=== PATIENT | male | born 1930 | race Caucasian/White ===

== ENCOUNTER 2016-04-26 13:43 | Outpatient (CLI) | payer OTHER ==
[~2016-04-26] VITALS: Ht 170.2 cm; Wt 57.7 kg
[2016-04-26 13:50] VITALS: BP 131/69; PULSE 109; RESP 18; Ht 170.2 cm; Wt 57.7 kg
[2016-04-26] MEDS ORDERED: MONT5TAB12 PO (13:59)
[2016-04-26] MEDS ORDERED: TAMS-14 PO (13:59)
[2016-04-26] MEDS ORDERED: DET1 PO (13:59)
[2016-04-26] MEDS ORDERED: ADV10050 INHALATION (13:59)
[2016-04-26] MEDS ORDERED: PRAV10TA43 PO (13:59)
--- NOTE | 2016-04-26 14:09 | PN ---
Date/Time of Note Date/Time of Note DATE: 04/26/16 TIME: 14:02 Assessment/Plan Assessment/Plan Assessment/Plan [facility] Progress Note Date of Service: 04/26/16 Today's Impression & Plan: Stable and doing well post lap appendectomy with partial cecectomy for acute appendicitis. No indication of major post operative complication. 1. F/u with PCP 2. F/u with urology 3. F/u with us prn Thank you very much for allowing us to participate in the care of this very nice patient and wonderful family. If there are any questions, please feel free to contact me at . Total visit time: 20 minutes, of which more than half was spent in [id number] discussion with the patient, possibly including time to discuss issues with family, as well as coordination of care with multiple other physicians and providers. Please note: Spelling or grammatical errors in this note are likely due to EHR/ dictation systems and are not reflective of patient care quality. Also please note that the dictation timestamp of this note does not necessarily reflected time of the visit for this service. Updated Clinical Summary: The patient is a very pleasant 85-year-old otherwise fairly healthy gentleman without significant reported major medical or surgical history who was admitted through the emergency department at [facility] on 2016 with diagnosis of possible acute appendicitis as supported by CT scan as well as his history and physical. Given his normal white blood cell count this is likely to be early appendicitis if that. Given the stability of the patient, I recommended that we treat the patient with intravenous antimicrobials and we have him tentatively on the schedule for laparoscopic, possible open appendectomy tomorrow with the possibility of canceling the case if the patient' s pain significantly improved overnight. I explained the operation in detail as well as the risks, benefits and alternatives with the patient and his and one of his sons and answered all her questions to the best of my ability. They appeared to understand and wish to proceed with the plan. We treated the patient with overnight antimicrobial therapy and he remained stable although he still had abdominal pain. For this reason I recommended that we proceed with her scheduled lap scopic appendectomy. S/p an otherwise uncomplicated laparoscopic appendectomy with partial cecectomy was performed due to involvement of the base of the appendix04/15/16. Pathology: FINAL DIAGNOSIS APPENDIX AND PARTIAL CECUM (APPENDECTOMY AND PARTIAL CECETOMY): - Acute appendicitis and periappendicitis - Benign colonic mucosa with viable resection margin Brief visit to [facility] ED night of discharge home with urinary retention; treated with 3 days of Reid cath as an outpatient. Comorbidities: 1. Acute appendicitis. S/p an otherwise uncomplicated laparoscopic appendectomy with partial cecectomy was performed due to involvement of the base of the appendix04/15/16. 2. Asthma 3. Elevated cholesterol 4. Enlarged prostate Subjective: No major events or complaints since d/c. No major pain complaints and no longer on pain medications. No N/V, SOB or CP. + bowel activity Objective: Vitals: reviewed; please also see below Physical Exam: Lungs: breathing comfortably without tachypnea; no audible wheezes, rales or rhonchi on gross exam Abd: Soft, non-tender, and non-distended; no peritoneal signs or guarding; incisions c/d/i w/o obvious e/e/d/h. Skin: Appears pink and feels warm to touch. Neuro: Awake, alert and follows commands appropriately SOSA ISAACS M.D. Apr 26, 2016 14:09
== END 2016-04-26 16:14 | disposition home or self-care (01) ==
LOC: HPC 13:43 → EDBD 14:30 → HPC 16:14
PROVIDERS: ATTEND Transplant Surgery
DX: K35.80 Unspecified acute appendicitis (principal); K63.5 Polyp of colon; J45.909 Unspecified asthma, uncomplicated; E78.00 Pure hypercholesterolemia, unspecified; N40.0 Benign prostatic hyperplasia without lower urinary tract symptoms
CPT/HCPCS: G0463